=== PATIENT | male | born 1990 | race Caucasian/White ===

== ENCOUNTER 2017-12-24 15:21 | Emergency (ER) | payer BC, OTHER ==
[2017-12-24 17:36] VITALS: BP 154/81
--- NOTE | 2017-12-24 18:16 | UC ---
Elbow Pain - HPI Summary HPI Summary: Pt presents with left elbow pain. He tells me that he slipped on the ice earlier today and landed on his left side and elbow. Has had pain since. Has not taken anything for this pain. Wants to be sure nothing is broken. No numbness or tingling - History of Current Complaint Chief Complaint: UCUpperExtremity Stated Complaint: ELBOW INJURY Time Seen by Provider: 12/24/17 17:42 Hx Obtained From: Patient Severity Initially: Moderate Severity Currently: Moderate Pain Intensity: 7 Pain Scale Used: 0-10 Numeric - Allergies/Home Medications Allergies/Adverse Reactions: Allergies Allergy/AdvReac Type Severity Reaction Status Date / Time amoxicillin [From Augmentin] Allergy Hives Verified 12/24/17 17:36 clavulanic acid Allergy Hives Verified 12/24/17 17:36 [From Augmentin] PMH/Surg Hx/FS Hx/Imm Hx Previously Healthy: Yes - Surgical History Surgical History: Yes Surgery Procedure, Year, and Place: NOSE SURGERIES - Family History Known Family History: Positive: None - Social History Occupation: Employed Full-time Lives: With Family Alcohol Use: Occasionally Substance Use Type: None Smoking Status (MU): Current Every Day Smoker Type: Cigarettes Amount Used/How Often: 1/2 ppd Length of Time of Smoking/Using Tobacco: 10 years Have You Smoked in the Last Year: Yes Review of Systems Constitutional: Negative Skin: Negative Respiratory: Negative Cardiovascular: Negative Neurovascular: Negative Musculoskeletal: Edema - Left elbow, Other: - Pain left elbow Neurological: Negative Psychological: Negative All Other Systems Reviewed And Are Negative: Yes Physical Exam Triage Information Reviewed: Yes Appearance: Well-Appearing, No Pain Distress, Obese Vital Signs: Initial Vital Signs Temp 97.5 F 12/24/17 17:32 Pulse 86 12/24/17 17:32 Resp 19 12/24/17 17:32 BP 154/81 12/24/17 17:32 Pulse Ox 98 12/24/17 17:32 Vital Signs Reviewed: Yes Eyes: Positive: Conjunctiva Clear. Negative: Conjunctiva Inflamed, Discharge Neck: Positive: Supple, Nontender, No Lymphadenopathy Respiratory: Positive: Lungs clear, Normal breath sounds, No respiratory distress, No accessory muscle use Cardiovascular: Positive: RRR, No Murmur, Pulses Normal - Left radial and ulnar Musculoskeletal: Positive: Strength Intact - Left elbow and shoulder, ROM Intact - Left elbow and shoulder, Edema @ - Left elbow - mild Neurological: Positive: Alert, Other: - Left UE Psychological: Positive: Age Appropriate Behavior Skin: Positive: Other - No erythema, ecchymosis, or abrasions.. Negative: rashes Elbow Pain Course/Dx - Course Course Of Treatment: Elbow XR: IMPRESSION: Bony focus in the joint space intervening between the coracoid process and humeral trochlea potentially could represent a tiny avulsion fracture although no definite donor site is identified. Will treat conservatively and advise RICE and ibuprofen prn. - Differential Dx/Diagnosis Provider Diagnoses: Left elbow pain Discharge - Discharge Plan Condition: Stable Disposition: HOME Prescriptions: Ibuprofen TAB* [Motrin TAB* 800 MG] 800 mg PO Q6H PRN #30 tab PRN Reason: Pain Patient Education Materials: Contusion in Adults (ED) Referrals: Santy Carvalho MD [Medical Doctor] - Additional Instructions: If you develop a fever, shortness of breath, chest pain, new or worsening symptoms - please call your PCP or go to the ED. Your blood pressure was high at todays visit. Please see your primary provider within 4 weeks for recheck and re-evaluation. 1) Rest and apply ice to your elbow as much as possible for the next 24-48hours 2) Take 800mg ibuprofen every 6-8hrs as needed for pain and swelling
--- NOTE | 2017-12-24 18:28 | RAD ---
INDICATION: Left elbow pain after a fall COMPARISON: None. TECHNIQUE: 4 views left elbow. REPORT: There is a tiny bony focus in the joint space intervening between the coracoid process and trochlea of the humerus without a definite donor site. Otherwise the visualized bones of the left elbow are well corticated and properly aligned. There is no radiographic evidence of pathologic joint effusion. IMPRESSION: Bony focus in the joint space intervening between the coracoid process and humeral trochlea potentially could represent a tiny avulsion fracture although no definite donor site is identified.
== END 2017-12-24 19:05 | disposition home or self-care (01) ==
LOC: UCEAST 15:21
DX: M25.522 Pain in left elbow (principal); Z88.1 Allergy status to other antibiotic agents; F17.210 Nicotine dependence, cigarettes, uncomplicated
CPT/HCPCS: 99202; G0463

== ENCOUNTER 2018-10-09 08:55 | Day surgery (SDC) | payer BC ==
[~2018-10-09 08:55] MED LIST: Buffered Lidocaine 0.9% SYRIN* 5 ML/SYR SYRINGE INTRADERM ONE
[2018-10-09] MEDS ORDERED: fentaNYL* 50 MCG/ML 2 ML VIAL (100 MCG VIAL) ONE (09:21)
[2018-10-09] MEDS ORDERED: Midazolam* 1 MG/ML 5 ML VIAL (5 MG) ONE (09:21)
[2018-10-09] MEDS ORDERED: Bupivacaine 0.25% SDV PF* 10 ML VIAL INJ ONE (10:17)
[2018-10-09 11:06] VITALS: BP 129/64
--- NOTE | 2018-10-10 04:30 | OP ---
DATE OF OPERATION: 10/09/18 [facility] DATE OF : 86. SURGEON: Michael Schuler MD. RESISTOR INSPECTOR: KIM Aly. ANESTHESIOLOGIST: Dr. Mariscal ANESTHESIA: Local MAC. PRE-OP DIAGNOSIS: Left thumb deep soft tissue mas. POST-OP DIAGNOSIS: Left thumb deep soft tissue mas. OPERATIVE PROCEDURE: Excision of left thumb deep soft tissue mass. INDICATIONS: David has a movable mass over the ulnar aspect of the left thumb MCP joint. It is tender and a bit painful when he uses the hand and squeezes anything tightly. We had talked about risks and benefit. He did want to have it excised. ESTIMATED BLOOD LOSS: 1 mL. COMPLICATIONS: None. FINDINGS: See above and below. DESCRIPTION OF PROCEDURE: joseline was seen in the preoperative holding area. The correct site, side, and procedure were identified. We came back to the operating room. The arm was prepped and draped in the usual fashion and a time- out was performed. The arm was exsanguinated with the Esmarch and the tourniquet was inflated 250 mmHg. I then made lazy S incision over the ulnar aspect of the MCP joint. Dissection was carried down to the adductor aponeurosis. The mass was encountered protruding out from the adductor aponeurosis. This was retracted out of the way. The marginal excision was performed. The mass was amputated at its base near the MCP joint. The base of the mass was cauterized with the Bovie cautery. It was handed off as a specimen. The area was irrigated out and then the skin was closed with 4-0 nylon suture. Dressings were applied and a thumb spica splint was applied. Tourniquet was deflated and he was taken to the recovery room in stable condition. [id number]/[facility] #: [id number] [facility]
== END 2018-10-09 11:33 | disposition home or self-care (01) ==
LOC: OREAST 08:55
PROVIDERS: ATTEND Orthopaedic Surgery Hand Surgery
DX: M67.442 Ganglion, left hand (principal); F17.210 Nicotine dependence, cigarettes, uncomplicated; E66.9 Obesity, unspecified
CPT/HCPCS: 88304; J2250; J3010; J3490